=== PATIENT | male | born 1955 | race Caucasian/White ===

== ENCOUNTER 2017-08-29 08:03 | Day surgery (SDC) | payer BC, OTHER ==
[2017-08-23 14:19] VITALS: BMI 22.8
[2017-08-29] MEDS ORDERED: LIDOCAINE HCL/PF 2% SDV 5ML VIAL ONE (08:14)
[2017-08-29] MEDS ORDERED: PROPOFOL 20 ML ONE ×2 (08:14)
[2017-08-29 08:30] VITALS: TEMP 98
[2017-08-29 09:32] VITALS: PULSE 60
[2017-08-29 09:46] VITALS: BP 144/88
--- NOTE | 2017-08-30 16:45 | PATH ---
Surgical Pathology Report Patient Name: JORDAN CHEUNG [facility]. Rec. #: [id number] /Age/Gender: 1955 (Age: 62) / M Account: [id number] Location: [facility]-ENDOSCOPY Taken: 08/29/2017 Received: 08/29/2017 Reported: 08/30/2017 Physicians: Mckinley Madden M.D. Specimen(s) Received TRANSVERSE Clinical History History of polyps Postoperative diagnosis: Transverse polyp, diverticulosis Final Diagnosis TRANSVERSE, POLYP, POLYPECTOMY: TUBULAR ADENOMA. Electronically Signed Mariaa Ferreira M.D. Gross Description Received in formalin, labeled "transverse" is a bridges, irregular portion of soft tissue measuring 0.4 cm. in greatest dimension. The specimen is submitted in toto in one cassette. 08/29/201708/29/2017
== END 2017-08-29 10:06 | disposition home or self-care (01) ==
LOC: FASU-ENDO 08:03
PROVIDERS: ATTEND Internal Medicine Gastroenterology
PROC: 0DBL8ZX Excision of Transverse Colon, Via Natural or Artificial Opening Endoscopic, Diagnostic (ICD-10-PCS; principal; 2017-08-29 08:48)
DX: Z86.010 Personal history of colon polyps (principal); D12.3 Benign neoplasm of transverse colon; K57.30 Diverticulosis of large intestine without perforation or abscess without bleeding
CPT/HCPCS: 88305-TC

== ENCOUNTER 2023-02-05 07:36 | Day surgery (SDC) | payer BC ==
[2023-02-01 11:29] VITALS: BMI 22.8
[2023-02-05] MEDS ORDERED: PROPOFOL 120 ML ONE (07:59)
[2023-02-05] MEDS ORDERED: LIDOCAINE HCL/PF 2% SDV 5ML VIAL ONE (08:01)
[2023-02-05 09:26] VITALS: TEMP 96.7
[2023-02-05 10:03] VITALS: BP 138/71; PULSE 68; RESP 18
== END 2023-02-05 10:26 | disposition home or self-care (01) ==
LOC: FASU-ENDO 07:36
PROVIDERS: ATTEND Internal Medicine Gastroenterology
PROC: 0DJD8ZZ Inspection of Lower Intestinal Tract, Via Natural or Artificial Opening Endoscopic (ICD-10-PCS; principal; 2023-02-05 08:56)
DX: Z12.11 Encounter for screening for malignant neoplasm of colon (principal); Z86.010 Personal history of colon polyps; K57.30 Diverticulosis of large intestine without perforation or abscess without bleeding